=== PATIENT | female | born 2000 | race Caucasian/White ===

== ENCOUNTER 2023-04-29 18:31 | Emergency (ER) | payer OTHER, SELFPAY ==
--- NOTE | ~2023-04-29 | US_ITS ---
EXAMINATION: US abdomen limited DATE: 04/29/2023 22:42 INDICATION: Right upper quadrant abdominal pain. TECHNIQUE: Multiple grayscale and Doppler ultrasound images of the abdomen were obtained. COMPARISON: None FINDINGS: The visualized portions of the head and body of pancreas are normal. There is diffuse hepat ic steatosis. There is normal flow in main portal vein. The gallbladder is normal in size. No gallsto prosper or gallbladder wall thickening. There was a positive sonographic Tejeda sign. The common duct is normal and measures 6 mm. IMPRESSION: 1. Diffuse hepatic steatosis. 2. No etiology for the positive sonographic Tejeda sign. Reviewed, dictated and finalized at location E. VERY RN
--- NOTE | ~2023-04-29 | CT_ITS ---
EXAMINATION: CT abdomen pelvis w con DATE: 04/29/2023 23:09 INDICATION: Right abdominal pain. TECHNIQUE: Computed tomography (CT) of the abdomen and pelvis was performed with 100 mL Omnipaque 350 intravenous contrast. Automated exposure control and iterative reconstruction technique were employe d. The dose-length product was 1449.82 mGy-cm. COMPARISON: None. FINDINGS: The visualized portions of the lung bases are clear without pneumonia or pleural effusion. The heart size is normal. No pericardial effusion. The liver, gallbladder, spleen, pancreas, adrenal glands, and kidneys are normal. There is an intrauterine device in abnormally low position and with o ne prong in the myometrium. There are no dilated loops of bowel. The appendix is normal. There are no pathologically enlarged lymph nodes. There is no free intraperitoneal fluid. There is mild thoracic spondylosis. There is mild chronic height loss of multiple thoracic vertebral bodies associated with Schmorl's nodes. IMPRESSION: 1. Intrauterine device in abnormal position. Reviewed, dictated and finalized at location E. OMER SERVICE CLERK
[2023-04-29 19:01] VITALS: BP 129/73; PULSE 79; RESP 17; TEMP 36.7; O2SAT 98
[2023-04-29 21:06] VITALS: BP 115/61; PULSE 81; RESP 20; O2SAT 100
[2023-04-29 21:51] LABS: Appearance Urine Cloudy (Clear); Bacteria Urine 1+ /hpf; Bilirubin Urine Negative (Negative); Blood Urine 2+ (Negative); Color Urine Yellow (Yellow); Glucose Urine UA Negative (Negative); Ketones Urine Negative (Negative); Leukocyte Esterase Ur Trace LEU/UL (Negative); Nitrate Urine Negative (Negative); Non Pathogenic Casts 0-2; Protein Urine Negative (Negative); RBC Urine 0-2 /hpf (0-2); Specific Grav Ur 1.034 (1.001-1.035); Squamous Epithelial Cell Urine Moderate /hpf (Few); pH Urine 5.5 (5.0-9.0)
[2023-04-29 22:04] LABS: Add Urine Microscopic? YES
--- NOTE | 2023-04-29 22:06 | ED.ABDPAIN ---
HPI - Abdominal Pain General Chief Complaint: Abdominal Pain Stated Complaint: Abdominal pain Time Seen by Provider: 04/29/23 20:58 Source: patient Mode of arrival: ambulatory Limitations: no limitations History of Present Illness HPI narrative: Patient is a 22-year-old female who presents the ED with report of right upper quadrant abdominal pain. Patient reports having intermittent pain for some time now, but states she has had worsening pain over the last couple of days. Pain aggravated with eating. Occasionally radiates around to her back. Patient is concerned she may be having gallbladder issues. She notes Fhx of gallbladder issues. She was seen at [facility] last night and had a CT scan of her abdomen and pelvis performed, which she states she was told was normal. Patient reports continued pain today, which prompted her presentation. She reports nausea, denies vomiting. Denies fevers. Denies dysuria, hematuria. Denies diarrhea or constipation. Related Data Allergies Allergy/AdvReac Type Severity Reaction Status Date / Time guaifenesin Allergy Unknown Verified 04/29/23 21:10 morphine Allergy Hives Verified 04/29/23 19:01 Review of Systems Review of Systems: CONSTITUTIONAL: Denies fever, chills, or sweats. CARDIOVASCULAR: Denies chest pain. RESPIRATORY: Denies dyspnea. GASTROINTESTINAL: See HPI GENITOURINARY: Denies dysuria or hematuria. MUSCULOSKELETAL: See HPI NEUROLOGIC: Denies headache, dizziness, numbness, or weakness. All systems reviewed & are unremarkable except as noted in HPI and below Exam Narrative: GENERAL: Well appearing, morbidly obese with BMI 42.4, non-toxic, in no acute distress. HEAD: Normocephalic, atraumatic. RESPIRATORY: Airway patent, respirations nonlabored. Clear to auscultation bilaterally, no rales, rhonchi, wheezing. CARDIOVASCULAR: Regular rate and rhythm without murmurs, rubs, or gallops. ABDOMINAL: Soft, tenderness in epigastric and RUQ, nondistended. Normoactive BS. MUSCULOSKELETAL: Moves all extremities. No gross deformities. SKIN: Warm, dry, normal color. NEURO: A&O X3. Speech clear. Cranial nerves II-XII grossly intact. No ataxic movements. PSYCHIATRIC: Appropriate mood and affect. Normal interaction. Course Vital Signs Vital signs: Vital Signs Temperature 98.0 F 04/29/23 19:01 Pulse Rate 79 04/29/23 19:01 Respiratory Rate 17 04/29/23 19:01 Blood Pressure 129/73 04/29/23 19:01 Pulse Oximetry 98 04/29/23 19:01 Temperature 98.0 F 04/29/23 19:01 Pulse Rate 71 04/30/23 00:12 Respiratory Rate 18 04/30/23 00:12 Blood Pressure 110/70 04/30/23 00:12 Pulse Oximetry 100 04/30/23 00:12 MDM - Abdominal Pain MDM Narrative Medical decision making narrative: Patient presented to ED with right upper quadrant abdominal pain, worsening over last couple of days. Concerned for gallbladder etiology. Vitals stable upon arrival. Patient afebrile. Basic laboratory studies unremarkable. No leukocytosis. Normal LFTs and lipase. Stable electrolytes and kidney function. UA consistent with infection with trace leuk esterase, 11-20 wbc's, 1+ bacteria. Sent for culture. Will treat. Right upper quadrant ultrasound showing hepatic steatosis, no evidence of cholelithiasis, cholecystitis. CT abdomen pelvis obtained and also unremarkable. Does not show any evidence for biliary etiology, ureterolithiasis. Does show mild positioned IUD, which I made patient aware of. Discussed lab and imaging findings with patient. She is feeling better with supportive therapy. Will be discharged at this time. Discussed treatment for UTI, Will Rx bactrim for possible impending ascending infection. Recommended follow-up with general surgery for outpatient management, OBGYN f/u for IUD. Patient in agreement w/ this plan. Given strict return precautions. Discharged in stable condition. Medical Records Attestation: I reviewed the patient's medical rec
[2023-04-29 22:12] LABS: Basophils Percent Auto 0.2 % (0.2-1.2); Eosinophils Percent Auto 0.2 % (0-4.4); Hematocrit 36.1 % (37.0-47.0); Hemoglobin 11.3 g/dL (12.0-15.0); Immature Granulocyte Absolute 0.02 K/mm3 (0.00-0.031); Immature Granulocyte Percent A 0.3 % (0-0.5); Lymphocytes Absolute Auto 1.37 K/mm3 (0.9-3.2); Mean Corpuscular HGB Conc 31.3 g/dl (32-36); Mean Corpuscular Hemoglobin 25.6 pg (26-34); Mean Corpuscular Volume 81.7 fl (80-100); Mean Platelet Volume 11.1 fl (7.4-10.4); Monocytes Absolute Auto 1.2 K/mm3 (0.1-0.6); Monocytes Percent Auto 19.1 % (2.6-8.5); Neutrophils Absolute Auto 3.6 K/mm3 (1.3-6.7); Neutrophils Percent Auto 58.2 % (45.5-73.1); Platelet Count Result 260 k/mm3 (150-375); Red Blood Count 4.42 M/mm3 (4.2-5.4); Red Cell Distribution Width 14.5 % (11.5-14.5); White Blood Count 6.2 K/mm3 (4.5-10.0)
[2023-04-29 22:27] LABS: Alanine Aminotransferase 28 U/L (6-35); Alkaline Phosphatase 106 U/L (38-126); Anion Gap 6 mmol/L (8-16); Aspartate Amino Transferase 42 U/L (14-36); Bilirubin,Total 0.3 mg/dL (0.2-1.3); Blood Urea Nitrogen 10 mg/dL (7-17); Calcium 8.6 mg/dL (8.4-10.2); Carbon Dioxide 25 mmol/L (22-30); Chloride 106 mmol/L (98-107); Estimated CRCL calculation 140 ml/min; Estimated Glomerular Filt Rate > 60; Glucose 88 mg/dL (65-110); Lipase 41 U/L (23-300); Potassium 4.2 mmol/L (3.4-5.0); Sodium 137 mmol/L (137-145)
[2023-04-29] MEDS: SODIUM CHLORIDE 0.9% IV 1,000 ML 999 ML IV CONT (22:40)
[2023-04-29] MEDS: fentaNYL CITRATE INJ (*CRX) 100 MCG/2 ML VIAL 25 MCG IV PUSH (22:40)
[2023-04-29] MEDS: ONDANSETRON INJ 4 MG/2 ML VIAL IV PUSH (22:40)
[2023-04-30 00:12] VITALS: BP 110/70; PULSE 71; RESP 18; O2SAT 100
[2023-04-30] MEDS: BELLADONNA ALK/PHENOB ELIX 10 ML, MAG HYDROX/ALUMINUM HYD/SIMETH 30 ML, LIDOCAINE HCL 2... PO (00:33)
== END 2023-04-30 00:45 | disposition home or self-care (01) ==
LOC: ANHED 23:53
PROVIDERS: Emergency Provider Physician Assistant
DX: N30.00 Acute cystitis without hematuria (principal); T83.32XA Displacement of intrauterine contraceptive device, initial encounter; R10.11 Right upper quadrant pain; K76.0 Fatty (change of) liver, not elsewhere classified; Y84.8 Other medical procedures as the cause of abnormal reaction of the patient, or of later complication, without mention of misadventure at the time of the procedure
CPT/HCPCS: 36415; 74177; 76705; 80053; 81001; 81025; 83690; 85025; 87077; 87086; 87088; 96361; 96374; 96375; 99284; A9270; J2405; J3010; J7030; Q9967